=== PATIENT | female | born 1965 | race Hispanic/Latino ===

== ENCOUNTER 2021-11-04 10:24 | Emergency (ER) | payer OTHER, BC ==
--- OUTSIDE RECORDS SUMMARY | 2021-11-04 10:28 | XMS REPORT | Continuity of Care Document ---
:1965 Author Organization [facility] t Address [address] [place] [address] Dr. Chiu [address] [place] [address] Care Team Providers Name Role Phone Gabby Malik Attending Clinician Unavailable Problems This patient has no known problems. Allergies, Adverse Reactions, Alerts Allergy Allergy Status Severity Reaction(s) Onset Inactive Treating Comm ents Source Name Type Date Date Clinician codeine Adverse Active Info Not Common Reaction Available [facility] Medications Ordered Filled Start Stop Current Ordering Indication Dosage Frequency Signature Comments Components Source Medication Medication Date Date Medication? Clinician (SIG) Name Name Azelastine Azelastine Yes Na Malik 1 drop Common HCl HCl 7-05 into [facility] 00:00: affected - [facility] 00 eye [facility] Pravastatin Pravastatin Yes Na Malik TAKE 1 Common Sodium Sodium TABLET BY [facility] MOUTH - [facility] EVERY DAY [facility] Flonase Flonase Yes Na Malik 2 sprays [facility] Allergy Allergy to each [facility] Relief Relief nostril - [facility] Cetirizine Cetirizine Yes Na Malik 1 tablet Common HCl HCl [facility] - [facility] Rosuvastati Rosuvastati Yes Na Malik 1 tablet Common n Calcium n Calcium Sp[facility] t [facility] Rosuvastati Rosuvastati Yes Na Malik 1 tablet Common n Calcium n Calcium [facility] Procedures This patient has no known procedures. Encounters Start End Encounter Admission Attending Care Care Encounter Source Date/Time Date/Time Type Type Clinicians Facility Department ID 2021-10-08 Outpatient Malik, Na STLMLC STLMLC [id number] 2 Common 10:38:00 [facility] 2021-08-09 Outpatient Malik, Na STLMLC STLMLC [id number] 2 Common 13:50:00 [facility] 2021-08-05 Outpatient Malik, Na STLMLC STLMLC [id number] 2 Common 15:27:01 [facility] 2021-03-31 Outpatient Malik, Na STLMLC STLMLC [id number] 2 Common 14:32:25 [facility] 2021-03-31 Outpatient Malik, Na STLMLC STLMLC [id number] 2 Common 12:47:50 [facility] 2021-03-31 Outpatient Malik, Na STLMLC STLMLC [id number] 2 Common 12:47:08 [facility] 2021-03-31 Outpatient Malik, Na STLMLC STLMLC [id number] 2 Common 12:39:03 [id number] [facility] 2021-03-31 Outpatient Malik, Na STLMLC STLMLC [id number] 2 Common 12:26:35 [id number] [facility] 2021-03-31 Outpatient Malik, Na STLMLC STLMLC [id number] 2 Common 12:25:15 [facility] 2021-03-31 Outpatient Malik, Na STLMLC STLMLC [id number] 2 Common 12:18:31 [id number] [facility] 2021-03-31 Outpatient Malik, Na STLMLC STLMLC [id number] 2 Common 11:29:31 [id number] [facility] 2021-03-31 Outpatient Malik, Na STLMLC STLMLC [id number] 2 Common 11:16:52 [id number] [facility] 2021-03-31 Outpatient Malik, Na STLMLC STLMLC [id number] 2 Common 11:08:30 [id number] [facility] 2021-10-12 2021-10-12 ambulatory STLMLC STLMLC [id number] Common 00:00:00 00:00:00 [facility] 2021-09-07 2021-09-07 ambulatory STLMLC STLMLC [id number] Common 00:00:00 00:00:00 [facility] 2021-08-09 2021-08-09 ambulatory STLMLC STLMLC [id number] Common 00:00:00 00:00:00 [facility] 2021-05-06 2021-05-06 ambulatory STLMLC STLMLC [id number] Common 00:00:00 00:00:00 [facility] 2021-05-06 2021-05-06 ambulatory STLMLC STLMLC [id number] Common 00:00:00 00:00:00 [facility] 2020-09-04 2020-09-04 Outpatient STLMLC STLMLC [id number] Common 00:00:00 00:00:00 [facility] 2020-06-05 2020-06-05 Outpatient STLMLC STLMLC [id number] Common 00:00:00 00:00:00 [facility] 2020-04-02 2020-04-02 Outpatient STLMLC STLMLC [id number] Common 00:00:00 00:00:00 [facility] 2020-03-13 2020-03-13 Outpatient STLMLC STLMLC [id number] Common 00:00:00 00:00:00 [facility] 2020-03-03 2020-03-03 Outpatient STLMLC STLMLC [id number] Common 00:00:00 00:00:00 [facility] 2019-10-08 2019-10-08 [facility] [id number] Common 11:00:00 11:00:[address] [facility] 2019-05-30 2019-05-30 [facility] [id number] Common 15:04:00 15:04:[address] [facility] 2018-11-13 2018-11-13 [facility] [id number] Common 15:00:00 15:00:[address] [facility] 2018-09-07 2018-09-07 Outpatient Trell Fajardo [id number] Common 14:40:00 14:40:[address] [facility] Results This patient has no known results.
[2021-11-04] MEDS ORDERED: IBUPROFEN 200 MG TAB PO ONE (11:05)
--- NOTE | 2021-11-04 11:29 | RAD REPORT ---
EXAM DESCRIPTION: CT - [id number] - 11/04/2021 11:09 am CLINICAL HISTORY: fall, head and neck injury COMPARISON: No comparisons TECHNIQUE: Axial 5 mm thick images of the head were obtained. Axial 2 mm thick images of the cervic al spine were obtained with sagittal and coronal reconstruction images generated and reviewed. All CT scans are performed using dose optimization technique as appropriate and may include automated exposure control or mA/KV adjustment according to patient size. FINDINGS: No intracranial hemorrhage, mass, edema or acute intracranial finding. No suspicion for ac emily infarction. No extra-axial fluid collections. Mastoid air cells and paranasal sinuses are clear. No globe or orbit abnormality seen. Cervical body height and alignment are normal. No disk space narrowing. No fracture or acute bony abn ormality. Central canal detail is inherently limited. No paraspinal mass or hematoma. IMPRESSION: Negative CT head examination for acute or significant finding. Negative CT cervical spine examination for acute or significant finding.
--- NOTE | 2021-11-04 11:32 | RAD REPORT ---
EXAM DESCRIPTION: CT - Facial Bones W/ Mpr - 11/04/2021 11:08 am CLINICAL HISTORY: Fall with left-sided facial trauma COMPARISON: None. TECHNIQUE: Axial 2 millimeter thick images of the facial bones were obtained with sagittal and coron al reconstruction imaging. All CT scans are performed using dose optimization technique as appropriate and may include automated exposure control or mA/KV adjustment according to patient size. FINDINGS: Contusion is seen in the subcutaneous fatty tissues overlying the left maxilla. No facial bone fracture is identified. Globe and orbital contents are unremarkable. Mastoid air cells are clear . No skullbase fracture. No acute paranasal sinus finding. Frontal sinuses are not pneumatized. No ma ndible fracture is identified. Condyles are normally positioned. IMPRESSION: Left-sided facial soft tissue contusion with no underlying bony abnormality.
--- NOTE | 2021-11-04 12:38 | RAD REPORT ---
EXAM DESCRIPTION: RAD - Chest Single View - 11/04/2021 12:30 pm CLINICAL HISTORY: Left sided chest pain s/p fall Chest pain. COMPARISON: No comparisons FINDINGS: Portable technique limits examination quality. The lungs are grossly clear. The heart is normal in size. No displaced fractures. IMPRESSION: No acute intrathoracic process suspected.
--- NOTE | 2021-11-04 13:27 | ER ---
Nurse's Notes [facility] Name: Carina Samuels Age: 56 yrs Sex: Female : 1965 Arrival Date: 11/04/2021 Time: 10:26 Bed 18 Private MD: Gabby Malik Diagnosis: Contusion of other part of head;Fall on same level, unspecified;Elevated blood-pressure reading, without diagnosis of hypertension Presentation: 11/04 10:44 Chief complaint: Patient states: Tripped on a stack of meal trays at work, hit L side ph of face on linoleum floor, states " It went black in my vision for a few seconds." Denies nausea or dizziness, bruising noted to L cheek. Coronavirus screen: Vaccine status: Patient reports being unvaccinated. Ebola Screen: No symptoms or risks identified at this time. Initial Sepsis Screen: Does the patient meet any 2 criteria? No. Patient's initial sepsis screen is negative. Does the patient have a suspected source of infection? No. Patient's initial sepsis screen is negative. Risk Assessment: Do you want to hurt yourself or someone else? Patient reports no desire to harm self or others. Onset of symptoms was November 04, 2021. 10:44 Method Of Arrival: Ambulatory ph 10:44 Acuity: MACI 4 ph Triage Assessment: 10:47 General: Appears in no apparent distress. Behavior is calm, cooperative, appropriate ph for age. Neuro: Level of Consciousness is awake, alert, obeys commands, Oriented to person, place, time, situation. Historical: - Allergies: 10:47 Codeine; ph - PMHx: 10:47 Hypercholesterolemia; ph - Social history:: Smoking status: Patient denies any tobacco usage or history of. Screenin:03 Abuse screen: Denies threats or abuse. Nutritional screening: No deficits noted. jh6 Tuberculosis screening: No symptoms or risk factors identified. Fall Risk None identified. Primary Survey: 11:04 NO uncontrolled hemorrhage observed. A: The client is awake and alert. The airway is jh6 patent. Breathing/Chest: Spontaneous respiratory effort, equal unlabored respirations, breath sounds clear bilaterally, regular pattern, symmetrical chest rise and fall. Circulation: No external hemorrhage present. Regular and strong central pulse, skin warm/dry/normal color. Disability Pupils are equal, round, reactive to light and accommodation. Reassessment Breathing:. 11:05 Exposure/Environment: A warming method has been applied: A warm blanket has been jh6 provided to the patient. Assessment: 11:01 General: Appears in no apparent distress. Behavior is calm, cooperative. Pain: jh6 Complains of pain in left ear and left cheek Pain currently is 5 out of 10 on a pain scale. Quality of pain is described as aching, Pain began suddenly, Is continuous. Musculoskeletal: Range of motion: intact in all extremities, Swelling present in left cheek. 12:20 Reassessment: Patient and/or family updated on plan of care and expected duration. Pain jh6 level reassessed. Patient is alert, oriented x 3, equal unlabored respirations, skin warm/dry/pink. waiting for x ray and ct results. pt using ice pack and stated ice is helping pain. Vital Signs: 10:44 BP 158 / 94; Pulse 77; Resp 18; Temp 97.9; Pulse Ox 100% on R/A; Weight 63.5 kg; Height ph 5 ft. 7 in. (170.18 cm); 10:44 Body Mass Index 21.93 (63.50 kg, 170.18 cm) ph [place] Coma Score: 11:04 Eye Response: spontaneous(4). Verbal Response: oriented(5). Motor Response: obeys jh6 commands(6). Total: 15. Trauma Score (Adult): 11:05 Eye Response: spontaneous(1); Verbal Response: oriented(1); Motor Response: obeys jh6 commands(2); Systolic BP: > 89 mm Hg(4); Respiratory Rate: 10 to 29 per min(4); [place] Score: 15; Trauma Score: 12 ED Course: 10:26 Patient arrived in ED. mr 10:27 Gabby Malik MD is Private Physician. mr 10:30 Ollie Carmona DO is Attending Physician. ms3 10:46 Shelley Ventura, ANSELMO is Primary Nurse. jh6 10:46 Triage completed. ph 10:47 Arm band placed on Patient placed in an exam room. ph 11:[address] jh6 11:04 No provider procedures requiring assistance completed. jh6 11:05 Bed in low position. Call light in reach. Side rails up X 1. jh6 11:05 Patient maintains SpO2 saturation greater than 95% on room air. jh6 11:10 CT Head C Spine In Process Unspecified. EDMS 11:10 Facial Bones W/O Con CT In Process Unspecified. EDMS 12:32 XRAY Chest (1 view) In Process Unspecified. EDMS 13:25 Gabby Malik MD is Referral Physician. ms3 Administered Medications: 11:00 Drug: Ibuprofen 600 mg Route: PO; [facility] 13:59 Follow up: Response: Pain is decreased [facility] Outcome: 13:26 Discharge ordered by . ms3 13:57 Discharged to home ambulatory. jh6 13:57 Condition: good 13:57 Discharge instructions given to patient, Instructed on discharge instructions, Demonstrated understanding of instructions. 13:59 Patient left the ED. [facility] Signatures: Dispatcher [employer] Mila Ch mr Mena Kulkarni, RN RN Ollie Whyte, DO DO ms3 Shelley Ventura RN RN 6
--- NOTE | 2021-11-04 13:27 | EDPHYS ---
Physician Documentation [facility] Name: Carina Samuels Age: 56 yrs Sex: Female : 1965 Arrival Date: 11/04/2021 Time: 10:26 Bed 18 Private MD: Gabby Malik ED Physician Ollie Carmona HPI: 11/04 10:51 This 56 yrs old Female presents to ER via Ambulatory with complaints of Fall ms3 Injury, Facial Injury. 10:51 56-year-old female with past medical history of hyperlipidemia presents status post ms3 tripping and falling and striking the left side of her face on concrete. Patient states she did have a brief loss of consciousness. Patient states her discomfort is an 8/10 described as throbbing in her left cheek. Patient states she also has headache, neck, left-sided chest pain. Patient denies alleviating or inciting factors. Patient denies nausea, vomiting, shortness of breath, chest pain.. Historical: - Allergies: 10:47 Codeine; ph - PMHx: 10:47 Hypercholesterolemia; ph - Social history:: Smoking status: Patient denies any tobacco usage or history of. ROS: 10:51 Constitutional: Negative for fever, and chills. Neck: Negative for injury, pain, and ms3 swelling, Cardiovascular: Negative for chest pain, and palpitations. Respiratory: Negative for shortness of breath, cough, wheezing, and pleuritic chest pain, Abdomen/GI: Negative for abdominal pain, nausea, vomiting, diarrhea, and constipation, MS/Extremity: Negative for injury and deformity. 10:51 ENT: Positive for Left sided facial pain. 10:51 All other systems are negative. Exam: 10:51 Constitutional: This is a well developed, well nourished patient who is awake, alert, ms3 and in no acute distress. 10:51 Back: No spinal tenderness. No costovertebral tenderness. Full range of motion. 10:51 Head/face: Noted is contusion, of the left cheek, swelling, that is moderate, of the left cheek, tenderness, that is moderate, of the left cheek, Sinus tenderness, that is moderate. 10:51 Neck: C-spine: Left sided paraspinal mm tenderness, Trachea: is midline with no obvious abnormalities. 10:51 Chest/axilla: Inspection: normal, Palpation: tenderness, that is moderate, of the anterior aspect of left upper chest. Vital Signs: 10:44 BP 158 / 94; Pulse 77; Resp 18; Temp 97.9; Pulse Ox 100% on R/A; Weight 63.5 kg; Height ph 5 ft. 7 in. (170.18 cm); 10:44 Body Mass Index 21.93 (63.50 kg, 170.18 cm) ph Nayana Coma Score: 11:04 Eye Response: spontaneous(4). Verbal Response: oriented(5). Motor Response: obeys jh6 commands(6). Total: 15. Trauma Score (Adult): 11:05 Eye Response: spontaneous(1); Verbal Response: oriented(1); Motor Response: obeys jh6 commands(2); Systolic BP: > 89 mm Hg(4); Respiratory Rate: 10 to 29 per min(4); [place] Score: 15; Trauma Score: 12 MDM: 10:50 Patient medically screened. ms3 10:51 Differential diagnosis: closed head injury, contusion, sprain, strain. ms3 13:27 Data reviewed: vital signs, nurses notes, radiologic studies, and as a result, I will ms3 discharge patient. Counseling: I had a detailed discussion with the patient and/or guardian regarding: the historical points, exam findings, and any diagnostic results supporting the discharge/admit diagnosis, radiology results, the need for outpatient follow up, to return to the emergency department if symptoms worsen or persist or if there are any questions or concerns that arise at home. ED course: Discussed CT scans with patient. Patient is improved, alert and oriented x4, no apparent stress, nontoxic, ambulatory in emergency department. Patient to follow-up with her primary care physician in 2 to 3 days as discussed. Patient understands and agrees with plan.. 11/04 10:50 Order name: CT Head C Spine; Complete Time: 12:53 ms3 11/04 10:50 Order name: XRAY Chest (1 view); Complete Time: 12:53 ms3 11/04 10:50 Order name: Facial Bones W/O Con CT; Complete Time: 12:53 ms3 Administered Medications: 11:00 Drug: Ibuprofen 600 mg Route: PO; [facility] 13:59 Follow up: Response: Pain is decreased jh6 Disposition Summary: 11/04/21 13:26 Discharge Ordered Location: Home ms3 Condition: Stable ms3 Diagnosis - Contusion of other part of head ms3 - Fall on same level, unspecified ms3 - Elevated blood-pressure reading, without diagnosis of hypertension ms3 Followup: ms3 - With: Gabby Malik MD - When: 2 - 3 days - Reason: Recheck today's complaints, Re-evaluation by your physician Discharge Instructions: - Discharge Summary Sheet ms3 - Contusion, [id number] ms3 Forms: - Medication Reconciliation Form ms3 - Thank You Letter ms3 - Antibiotic Education ms3 - Prescription Opioid Use ms3 Signatures: Dispatcher [employer] EDMena Ballard RN RN Ollie Whyte DO DO ms3 Shelley Ventura RN RN jh6
[2021-11-04 14:11] VITALS: BP 158/94; TEMP 97.9; O2SAT 100
== END 2021-11-04 13:59 | disposition home or self-care (01) ==
LOC: ER 10:24
DX: S00.83XA Contusion of other part of head, initial encounter (principal); R03.0 Elevated blood-pressure reading, without diagnosis of hypertension; W18.30XA Fall on same level, unspecified, initial encounter; E78.00 Pure hypercholesterolemia, unspecified; Z88.5 Allergy status to narcotic agent
CPT/HCPCS: 70450; 70486; 71045; 72125; 76377; 99284